=== PATIENT | female | born 1935 | race Caucasian/White ===

== ENCOUNTER 2016-10-26 14:20 | Observation (INO) | payer OTHER ==
[~2016-10-26] VITALS: Ht 157.5 cm; Wt 77.9 kg
[~2016-10-26 14:20] MED LIST: ADVAIR 250-501 EACH IH; AMITRIPTYLINE H50 M1 PO; ATENOLOL25 M1 PO; ATIVAN1 MG PO; ATROVENT 0.06%15 ML NS; DELTASONE10 MG PO; DIOVAN HCT 1601 EACH PO; DIOVAN160 MG PO; ELAVIL50 MG PO; GABAPENTIN300 MG PO; HYDROCORTISONE10 MG PO; LORAZEPAM1 MG PO; NEURONTIN300 MG PO; NEXIUM40 MG PO; ONDANSETRON ODT4 MG PO; PERCOCET 5/31 TABLET PO; PROMETHAZINE HC25 M1 PO; SUCRALFATE1 GM PO; SYNTHROID100 MCG PO; VENTOLIN HFA18 GM IH; ZOFRAN ODT4 MG PO; ZOFRAN8 MG PO
[2016-10-26 15:01] LABS: HEMATOCRIT 36.1 % (36.0-46.0); MCH 31.5 PG (29.0-34.0); MCHC 33.8 G/DL (30.0-36.0); MCV 93.3 FL (83-99); PLATELET COUNT 336 K/uL (156-360); RBC DIS.WIDTH-CV 12.5 % (11.8-14.6); RBC DIS.WIDTH-SD 42.5 % (39-53); RED BLOOD COUNT 3.87 M/uL (3.80-5.20); WHITE BLOOD COUNT 15.1 K/uL (4.1-10.2)
[2016-10-26 15:28] LABS: CHLORIDE 102 mEq/L (99-109); POTASSIUM 3.6 mEq/L (3.7-5.4); SODIUM 137 mEq/L (136-147)
[2016-10-26 15:30] LABS: GLUCOSE 102 mg/dL (70-99)
[2016-10-26 15:31] LABS: ANION GAP 9 MEQ/L (2-14)
[2016-10-26 15:34] LABS: GFR ESTIMATE (CALCULATED) 36 mL/min/
[2016-10-26 15:35] LABS: UREA NITROGEN (BUN) 33 mg/dL (9-23)
[2016-10-26] MEDS ORDERED: ERGOCALCIF50000 UNIT PO (17:11)
[2016-10-26] MEDS ORDERED: LORAZEPAM1 MG PO (17:12)
[2016-10-26] MEDS ORDERED: TENORMIN25 MG PO (17:12)
[2016-10-26] MEDS ORDERED: DIOVAN HCT 11 TABLET PO (17:13)
[2016-10-26] MEDS ORDERED: NEXIUM40 MG PO (17:15)
[2016-10-26 18:16] LABS: ADD MIUA? YES; BILIRUBIN NEGATIVE; BLOOD MODERATE; COLOR YELLOW ((YELLOW)); GLUCOSE (STRIP) NEGATIVE; KETONES NEGATIVE; LEUKOCYTES NEGATIVE; NITRITE NEGATIVE; PROTEIN (STRIP) NEGATIVE; SPECIFIC GRAVITY 1.014 (1.000-1.030); UROBILINOGEN 0.2 MG/DL (0.2-1.0)
[2016-10-26 18:34] LABS: BACTERIA NONE SEEN /HPF; BUDDING YEAST 1+; EPITHELIAL CELLS RARE /HPF; HYALINE CASTS 0-5 /LPF; MUCUS TRACE /LPF; RED BLOOD CELLS TNTC /HPF (0-5); UNCLASSIFIED CASTS 0-5 /LPF; UNCLASSIFIED CRYSTALS 3+ /HPF; WHITE BLOOD CELLS 15-20 /HPF (0-5)
[2016-10-26 20:55] LABS: INFLUENZA A VIRAL ANTIGEN NEGATIVE; INFLUENZA B VIRAL ANTIGEN NEGATIVE
[2016-10-26 21:41] VITALS: BP 162/67
[2016-10-27 03:56] VITALS: BP 154/68
[2016-10-27 09:13] VITALS: BP 134/62
[2016-10-27 11:31] VITALS: BP 136/75
[2016-10-27 11:48] LABS: EOSINOPHIL COUNT 0.1 K/uL (0-0.3); HEMATOCRIT 33.3 % (36.0-46.0); IMMATURE GRANULOCYTE (%) 0.9 % (0.0-0.7); IMMATURE GRANULOCYTE COUNT 0.1 K/uL; LYMPHOCYTE COUNT 2.4 K/uL (1.0-2.8); MCH 31.8 PG (29.0-34.0); MCHC 33.6 G/DL (30.0-36.0); MCV 94.6 FL (83-99); MEAN PLAT.VOLUME 9.3 uM^3 (9.5-12.4); MONOCYTE (%) 5.5 % (3-12); MONOCYTE COUNT 0.6 K/uL (0-0.8); NEUTROPHIL (%) 68.9 % (45-76); PLATELET COUNT 284 K/uL (156-360); RBC DIS.WIDTH-CV 12.4 % (11.8-14.6); RBC DIS.WIDTH-SD 42.8 % (39-53); RED BLOOD COUNT 3.52 M/uL (3.80-5.20); WHITE BLOOD COUNT 10.1 K/uL (4.1-10.2)
[2016-10-27 11:57] LABS: ANION GAP 8 MEQ/L (2-14); CHLORIDE 104 MEQ/L (99-109); GFR ESTIMATE (CALCULATED) 51 mL/min/; GLUCOSE 112 mg/dL (70-99); SAMPLE HEMOLYSIS CHECK 0; SAMPLE ICTERIC CHECK 0; SAMPLE LIPEMIA CHECK 0; SODIUM 138 MEQ/L (136-147); UREA NITROGEN (BUN) 21 mg/dL (9-23)
[2016-10-27] MEDS ORDERED: GUAIFENESIN WI120 M1 PO (13:19)
[2016-10-27] MEDS ORDERED: BENZONATATE100 MG PO (13:19)
== END 2016-10-27 15:03 | disposition home or self-care (01) ==
LOC: EME 14:20 → EDOF 19:25 → 5WEST 21:18
PROVIDERS: Emergency Medicine; Hospitalist; Physician Assistant Medical
DX: I95.1 Orthostatic hypotension (principal); N17.9 Acute kidney failure, unspecified; E86.0 Dehydration; E87.6 Hypokalemia; D72.829 Elevated white blood cell count, unspecified; T38.0X5A Adverse effect of glucocorticoids and synthetic analogues, initial encounter; J45.901 Unspecified asthma with (acute) exacerbation; J20.9 Acute bronchitis, unspecified; R26.2 Difficulty in walking, not elsewhere classified; K21.9 Gastro-esophageal reflux disease without esophagitis; M19.90 Unspecified osteoarthritis, unspecified site
CPT/HCPCS: 71020; 71250; 80048; 81003; 85025; 85027; 87502; 93005; 99202; 99281; 99285; G0378; G8978 GP CH; G8979 GP CH; G8980 GP CH; J1644; J3480; J7030

== ENCOUNTER 2016-12-20 12:27 | Emergency (ER) | payer OTHER ==
[~2016-12-20] VITALS: Ht 157.5 cm; Wt 74.0 kg
[~2016-12-20 12:27] MED LIST changes: +BENZONATATE100 MG PO; +DIOVAN HCT 11 TABLET PO; +ERGOCALCIF50000 UNIT PO; +GUAIFENESIN WI120 M1 PO; +TENORMIN25 MG PO
[2016-12-20] MEDS ORDERED: ZOFRAN4 MG PO (13:29)
[2016-12-20 16:02] VITALS: BP 168/70
== END 2016-12-20 16:13 | disposition home or self-care (01) ==
LOC: EME → EDBD 12:27 → EME 12:27
DX: E86.0 Dehydration (principal); K52.9 Noninfective gastroenteritis and colitis, unspecified; I10 Essential (primary) hypertension
CPT/HCPCS: 99281; 99284; J2405; J7030

== ENCOUNTER 2017-02-24 13:55 | Emergency (ER) | payer OTHER ==
[~2017-02-24] VITALS: Ht 157.5 cm; Wt 72.7 kg
[~2017-02-24 13:55] MED LIST changes: +ZOFRAN4 MG PO
[2017-02-24] MEDS ORDERED: NORCO 5/3251 TABLET PO (15:35)
[2017-02-24 16:16] VITALS: BP 140/72
== END 2017-02-24 16:17 | disposition home or self-care (01) ==
LOC: EME 13:55
DX: S83.91XA Sprain of unspecified site of right knee, initial encounter (principal); W18.30XA Fall on same level, unspecified, initial encounter; M17.11 Unilateral primary osteoarthritis, right knee; I10 Essential (primary) hypertension; J45.909 Unspecified asthma, uncomplicated
CPT/HCPCS: 73564; 99281; 99283